=== PATIENT | female | born 1980 | race Caucasian/White ===

== ENCOUNTER 2018-09-28 20:09 | Observation (INO) ==
--- NOTE | 2018-09-29 08:11 | Obstetrical Progress Note ---
Date of Service September 29, 2018 Physical Exam Physical Exam: Observation Note 38 F [id number] at 39.5 weeks here overnight for rule out labor. Cervix is unchanged from admission. She is still 50/-3/vertex/firm/intact. FHT Cat 1 with irregular contractions. Will discharge home not in active labor. Instructions given to call back with any change or to kweep appointment next week if undelivered. Results & Data Vital Signs (Past 12 Hours) Vital Signs Temp Pulse Resp BP 09/29/18 07:04 36.5 C 66 20 133/81 09/29/18 05:45 36.4 C L 66 16 129/77 09/29/18 02:30 36.6 C 67 16 125/78 09/28/18 21:27 36.6 C 68 18 129/75 09/28/18 20:23 36.8 C 85 16 121/76
--- NOTE | 2018-10-21 13:44 | Discharge Summary ---
REASON FOR ADMISSION AND HOSPITAL COURSE: The patient is a 38-year-old female para 3-0-0-3 at 39 weeks and 5 days here for rule out labor. The patient had unchanged cervix, remaining at 1, 50, -3, vertex, category 1, heart tones with irregular contractions. The patient is not in active labor and she was discharged in stable condition. Home going instructions were given. Condition on discharge is stable. Follow up will be in the office.
== END 2018-09-29 08:15 | disposition home or self-care (01) ==
LOC: OPB 20:09 → 4S1 20:09

== ENCOUNTER 2018-10-06 06:54 | Inpatient (IN) ==
[2018-10-06] MEDS ORDERED: OXYTOCIN 30 UNITS/500 ML BAG IV PRN (08:36)
[2018-10-06] MEDS ORDERED: DINOPROSTONE 10 MG INSERT PV ONE (08:45)
--- NOTE | 2018-10-06 08:47 | History & Physical Report ---
Date of Service October 06, 2018 Assessment & Plan (1) Post-term , 40-42 weeks of gestation: 38 yo at 40.4 wks, scheduled IOL VSS Afebrile FHR reassuring GBS negative Plan to admit, monitor, cervical ripening with Cervidil All questions were answered History of Present Illness Chief Complaint: Induction Primary Care Provider: NO PCP Patient is a 38 yo at 40.4 wks Scheduled IOL for postterm No complaints No ctxs/ LOF/VB/Fever/ chills/ FORBES/ Change in vision +FM's Her has been uncomplicated GBS negative Denies medical problems Allergies Allergy/AdvReac Type Severity Reaction Status Date / Time Penicillins Allergy Unknown Rash Verified 09/28/18 20:26 Home Medications Home Medications Medication Instructions Recorded Confirmed Type vit no.[id number] 1 tab PO DAILY 10/06/18 10/06/18 History [ Vitamin] Patient History Medical History History of wisdom tooth extraction Family History Father FH: kidney cancer Father Prostate cancer Social History Preferred Language: Vietnamese Communication Ability: Effective 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 Beliefs That Will Affect Care: None marital status: Current Living Situation: Family Other Information That Helps Us Care for You: No Feels Safe at Home: Yes Safety Concerns: Feels Safe At This Time Smoking Status: Never smoker Do You Dip or Chew Tobacco: No Second Hand Exposure: No Tobacco Cessation Education Requested by Patient: No Hx Alcohol Use: No Hx Substance Use: No OB History 2 FT 1 [employer] History No h/o STD's Review of Systems All systems reviewed & are unremarkable except as noted in HPI & below as per Subjective / HPI Physical Exam Constitutional: WD/WN, vitals as above well developed and well nourished Comfortable smiling Gastrointestinal (Abdomen): Soft NT, Gravid Genitourinary: VE; 2/ 30%/ -3, ballotable Results & Data Vital Signs (Past 12 Hours) Vital Signs Temp Pulse Resp BP 10/06/18 07:18 36.6 C 80 20 139/71 10/06/18 07:01 80 139/71 Monitoring External Monitor Reactive Tocodynamometer No ctxs
[2018-10-06 08:53] LABS: Hematocrit (blood only) 35.2 % (37-47); Hemoglobin 12.2 g/dL (12.0-16.0); Mean Corpuscular Volume 84.8 fL (80-100); Mean Platelet Volume 10.3 fL (7.4-10.4); Platelet Count 177 K/uL (130-400); RDW Coefficient of Variation 13.4 % (11.5-14.5); RDW Standard Deviation 41.2 fL (36.4-46.3); Red Blood Count 4.15 M/uL (4.2-5.4); White Blood Count 10.76 K/uL (4.8-10.8)
[2018-10-06 09:08] LABS: Mean Corpuscular Hgb Conc 34.7 g/dL (32-36)
--- NOTE | 2018-10-06 21:13 | Obstetrical Progress Note ---
Date of Service October 06, 2018 Subjective Patient is reevaluated She has pham feeling ctxs q 2-3 min, pain is 6-7/ 10 No LOF/VB +FM's VE: 3-4 CM/ 50%/ -2, Anterior, tight bag FHR categ I [place]: ctxs q 1-2 min Patient desires to walk around more and then come back for recheck and possible AROM or pitocin Results & Data Vital Signs (Past 12 Hours) Vital Signs Temp Pulse Resp BP 10/06/18 19:07 69 127/72 10/06/18 16:43 36.8 C 73 20 125/74 10/06/18 14:59 81 135/75 10/06/18 13:41 36.7 C 80 16 133/65 10/06/18 12:10 36.6 C 78 20 123/69 10/06/18 09:39 36.4 C L 73 16 136/69
--- NOTE | 2018-10-06 23:17 | Obstetrical Progress Note ---
Date of Service October 06, 2018 Subjective Patient is reevaluated She felt more ctxs while walking Pain is 7/10, thinking to get epidural VSS Afebrile HR categ I [place] ctxs q 1-3 min VE; 4/ 50%/ -2, tight bag, AROM'ed, clear Continue to monitor closely Results & Data Vital Signs (Past 12 Hours) Vital Signs Temp Pulse Resp BP 10/06/18 22:55 70 126/84 10/06/18 19:07 69 127/72 10/06/18 16:43 36.8 C 73 20 125/74 10/06/18 14:59 81 135/75 10/06/18 13:41 36.7 C 80 16 133/65 10/06/18 12:10 36.6 C 78 20 123/69
[2018-10-06] MEDS: LACTATED RINGER'S 1,000 ML IV PRN (23:30)
[2018-10-06] MEDS ORDERED: ePHEDrine sulfate 50 MG/ML AMP ONE (23:45)
[2018-10-06] MEDS ORDERED: fentaNYL citrate 100 MCG/2 ML VIAL ONE (23:45)
[2018-10-06] MEDS ORDERED: BUPIVACAINE 0.25% 30 ML VIAL ONE (23:45)
[2018-10-06] MEDS ORDERED: fentaNYL 2MCG/ML ROPIV 1.25MG/ML 100 ML BAG EPI ONE (23:46)
--- NOTE | 2018-10-07 00:22 | Anesthesiology Consultation ---
Date of Service October 07, 2018 Assessment & Plan Chart Review Chart Review: Acceptable Risk for Labor Epidural Consults Requested none History Height/Weight Height: 5 ft 6 in Weight: 92.986 kg Allergies Allergy/AdvReac Type Severity Reaction Status Date / Time Penicillins Allergy Unknown Rash Verified 09/28/18 20:26 Medications Home Medications Medication Instructions Recorded Confirmed Last Taken vit no.[id number] 1 tab PO DAILY 10/06/18 10/06/18 10/06/18 05:30 [ Vitamin] Past Medical History Medical History History of wisdom tooth extraction Past Family History Family History Father FH: kidney cancer Father Prostate cancer Social History Smoking Status: Never smoker Do You Dip or Chew Tobacco: No Hx Alcohol Use: No Hx Substance Use: No substance use type: does not use Physical Exam Vital Signs Last Vital Signs Temp 36.7 C 10/06/18 22:55 Pulse 97 H 10/07/18 00:19 Resp 18 10/06/18 22:55 BP 135/66 10/07/18 00:18 Pulse Ox 100 10/07/18 00:19 Testing Laboratory Results 10/06/18 08:40
[2018-10-07] MEDS ORDERED: fentaNYL 2MCG/ML ROPIV 1.25MG/ML 100 ML BAG EPI PRN (00:27)
[2018-10-07] MEDS ORDERED: NALOXONE HCL 0.4 MG/1 ML VIAL/CARP IV PRN (00:27)
[2018-10-07] MEDS ORDERED: NALOXONE HCL 1 MG in SODIUM CHLORIDE 0.9% 1000ML 1,000 ML IV PRN (00:27)
[2018-10-07] MEDS ORDERED: NALBUPHINE HCL INJ 10 MG/ML AMP IV PRN (00:27)
[2018-10-07] MEDS ORDERED: ePHEDrine sulfate 50 MG/ML AMP IV PRN (00:27)
[2018-10-07] MEDS ORDERED: DiphenhydrAMINE HCL 50 MG/ML VIAL IV PRN (00:27)
[2018-10-07] MEDS: LACTATED RINGER'S 1,000 ML IV PRN (00:32)
[2018-10-07] MEDS ORDERED: OXYTOCIN 30 UNITS/500 ML BAG IV PRN ×2 (01:00→07:01)
[2018-10-07] MEDS ORDERED: MEASLES, MUMPS & RUBELLA VIRUS VIAL SQ ONE (07:01)
[2018-10-07] MEDS ORDERED: BISACODYL 10 MG SUPP PR PRN (07:01)
[2018-10-07] MEDS ORDERED: DIPHTHERIA/TETANUS/PERTUSSIS 0.5 ML SYR/VIAL IM ONE (07:01)
[2018-10-07] MEDS ORDERED: ACETAMINOPHEN 325 MG TAB PO PRN (07:01)
[2018-10-07] MEDS ORDERED: HYDROCORTISONE ACETATE 25 MG SUPP PR PRN (07:01)
[2018-10-07] MEDS ORDERED: BENZOCAINE 20% AER SPR 82.5 GM CAN EXT PRN (07:01)
--- NOTE | 2018-10-07 07:32 | Anesthesia Procedure Note ---
Date of Service October 07, 2018 Anesthesia Post Epidural Note Vital Signs Vital Signs: Temp Pulse Resp BP Pulse Ox 37.0 C 88 18 117/67 98 10/07/18 05:00 10/07/18 07:22 10/06/18 22:55 10/07/18 07:22 10/07/18 06:54 Pain Intensity Abdomen: Pain Intensity: 0 Notes Mental Status: alert / awake / arousable and participated in evaluation Nausea / Vomiting: adequately controlled Pain: adequately controlled Airway Patency, RR, SpO2: stable & adequate BP & HR: stable & adequate Hydration State: stable & adequate Neuraxial Anesthesia: was administered and sensory block is resolving Anesthetic Complications: no major complications apparent and Pt Satisfied with anesthetic care Epidural: Removed without complications and With tip intact Notes: Epidural site clean, dry and intact. No signs of edema, erythema or bruising at insertion site. Pt instructed to request anesthesia if she has residual lower extremity numbness or if she develops lower extremity pain or weakness, back pain or headache.
[2018-10-07] MEDS: SUPERCREAM 0.870% 15 GM JAR EXT PRN (10:01)
[2018-10-07] MEDS: IBUPROFEN 600 MG TAB PO PRN ×3 (10:06→20:16)
--- NOTE | 2018-10-07 10:52 | Delivery Summary ---
DATE OF OPERATION: 10/07/2018 TIME OF DELIVERY OF BABY: 07:40 a.m. TIME OF DELIVERY OF PLACENTA: 07:58 a.m. DETAILS OF DELIVERY: The patient was found to be fully dilated and desired to push. She pushed for about 10 minutes and delivered the head. There was difficulty delivering the anterior shoulder with minimal traction, it was behind the pubic bone. Patient's legs were hyperextended. There was enough space in vagina and the posterior shoulder was easily reachable. It was delivered gently without difficulty. And then whole body without difficulty. Then baby was handed off to the mother. Mouth and nose were suctioned. Cord blood was clamped x2 and cut. It was 3 vessels cord. Cord blood was obtained. The vagina and perineum were checked for lacerations. There was a small laceration in the perineum, but it was very close to the external sphincter muscles. Rectal exam was done and she had partial sphincter tone. The rest of the sphincter muscles were held with Allis clamps. Gloves were changed and the sphincter muscles were reapproximated with [id number] stitches x3 and rectal exam was repeated and excellent sphincter tone and integrity was noted and no sutures were felt in the rectal mucosa. Gloves were changed and the rest of the vagina and perineal body muscles were reapproximated with 2-0 Vicryl in a running locked fashion, skin in a subcuticular fashion. The rest of the vagina and labia were intact. Placenta was found to be in the vagina, delivered spontaneous as intact and complete. Uterus was explored, found to be empty. Lower segment was cleared of all clots and debris. EBL was 100 ml. Fundus was firm. Baby was a viable female . Apgars 8/9. Mom and baby are doing well. Sponge, needle count, instrument count was correct x2. No complications happened. I was present during whole procedure. I attest to the content of the Intraoperative Record and any orders documented therein. Any exceptions are noted below. JC
[2018-10-07] MEDS: DOCUSATE SODIUM 100 MG CAP PO SCH (20:16)
[2018-10-08 08:11] LABS: Hematocrit (blood only) 33.1 % (37-47); Hemoglobin 11.2 g/dL (12.0-16.0); Mean Corpuscular Hgb Conc 33.8 g/dL (32-36); Mean Corpuscular Volume 85.5 fL (80-100); Mean Platelet Volume 10.3 fL (7.4-10.4); Platelet Count 172 K/uL (130-400); RDW Coefficient of Variation 13.7 % (11.5-14.5); RDW Standard Deviation 42.4 fL (36.4-46.3); Red Blood Count 3.87 M/uL (4.2-5.4); White Blood Count 11.71 K/uL (4.8-10.8)
[2018-10-08] MEDS: DOCUSATE SODIUM 100 MG CAP PO SCH ×2 (08:15→09:03)
[2018-10-08] MEDS: PRENATAL VITAMIN 1 TAB PO SCH ×2 (08:15→09:04)
[2018-10-08] MEDS: FERROUS SULFATE 325 MG TAB PO SCH ×2 (08:15→09:04)
[2018-10-08] MEDS: SUPERCREAM 0.870% 15 GM JAR EXT PRN (09:13)
--- NOTE | 2018-10-08 09:30 | Obstetrical Progress Note ---
Date of Service October 08, 2018 Subjective Patient is seen and examined. She feels well, no complaints. Desires discharge today. Ambulating without dizziness Voiding without difficulty Tolerating regular diet with out N&V Bleeding is minimal No fever/ chills/ CP/ SOB/ N&V/ Leg pain Breast feeding without problems Vital Signs Temp Pulse Pulse Pulse Resp BP Pulse Ox 10/08/18 07:00 36.7 C 86 20 126/76 10/08/18 03:05 36.6 C 69 18 127/67 10/07/18 23:30 36.6 C 82 18 118/76 10/07/18 20:15 36.7 C 83 18 137/77 10/07/18 16:40 36.6 C 81 16 127/72 98 10/07/18 13:35 36.6 C 90 18 133/77 98 10/07/18 09:45 36.7 C 89 18 126/78 96 10/08/18 Range/Units 07:24 WBC 11.71 H (4.8-10.8) K/uL RBC 3.87 L (4.2-5.4) M/uL Hgb 11.2 L (12.0-16.0) g/dL Hct 33.1 L (37-47) % MCV 85.5 (80-100) fL MCH 28.9 (25-34) pg MCHC 33.8 (32-36) g/dL RDW Std Deviation 42.4 (36.4-46.3) fL RDW Coeff of [place] 13.7 (11.5-14.5) % Plt Count 172 (130-400) K/uL MPV 10.3 (7.4-10.4) fL PE: General: Alert, orientedx3, NAD Abd: soft, NT, fundus firm, below Umbilicus Perineum intact, Lochia rubra minimal Ext; NT, no edema AP: 38 yo s/p , ppd# 1 VSS Afebrile doing well Continue routine care All questions were answered Discussed when to call D/C home , f/u in office Results & Data Vital Signs (Past 12 Hours) Vital Signs Temp Pulse Resp BP 10/08/18 07:00 36.7 C 86 20 126/76 10/08/18 03:05 36.6 C 69 18 127/67 10/07/18 23:30 36.6 C 82 18 118/76
[2018-10-08] MEDS ORDERED: BISACODYL 5 MG TABEC PO STA (10:21)
[2018-10-08] MEDS ORDERED: BISACODYL 5 MG TABEC PO SCH (20:00)
== END 2018-10-08 12:15 | disposition home or self-care (01) | DRG 807 ==
LOC: 4S1 06:54 → 4S2 10-07 09:15